=== PATIENT | male | born 1970 | race Caucasian/White ===

== ENCOUNTER → 2021-08-10 00:47 | Outpatient (CLI) | payer OTHER, SELFPAY ==
[2021-08-10 18:08] LABS: SARS-CoV-2 RNA PCR Positive
== END ==
PROVIDERS: PCP Internal Medicine; Visit Provider Physician Assistant
DX: U07.1 COVID-19 (principal)
CPT/HCPCS: C9803; U0003; U0005

== ENCOUNTER → 2021-08-19 08:47 | Outpatient (CLI) | payer OTHER, SELFPAY ==
[2021-08-21 01:26] LABS: SARS-CoV-2 RNA PCR Negative
== END ==
PROVIDERS: PCP Internal Medicine; Visit Provider Physician Assistant
DX: R68.89 Other general symptoms and signs (principal); Z20.822 Contact with and (suspected) exposure to COVID-19
CPT/HCPCS: C9803; U0003; U0005